=== PATIENT | male | born 1955 | race Caucasian/White ===

== ENCOUNTER 2024-05-08 20:29 | Inpatient (IN) | payer MEDICARE, OTHER ==
[~2024-05-08] VITALS: Ht 182.9 cm; Wt 99.9 kg
[2024-05-08 21:10] LABS: BASOPHILS ABSOLUTE AUTO 0.07 K/mm3 (0.00-0.23); BASOPHILS PERCENT AUTO 0 % (0-2); EOSINOPHILS ABSOLUTE AUTO 0.01 K/mm3 (0.00-0.68); EOSINOPHILS PERCENT AUTO 0 % (0-6); Hematocrit 38.5 % (37.0-53.0); Hemoglobin 14.2 g/dL (13.5-17.5); IMMATURE GRAN ABSOLUTE AUTO 0.18 K/mm3 (0.00-0.10); IMMATURE GRAN PERCENT AUTO 1 % (0-1); LYMPHOCYTES ABSOLUTE AUTO 0.87 K/mm3 (0.84-5.20); LYMPHOCYTES PERCENT AUTO 4 % (21-46); MONOCYTES ABSOLUTE AUTO 2.54 K/mm3 (0.16-1.47); MONOCYTES PERCENT AUTO 11 % (4-13); Mean Corpuscular HGB 31.9 pg (26.0-34.0); Mean Corpuscular HGB Conc 36.9 g/dL (31.5-36.5); Mean Corpuscular Volume 87 fL (80-100); Mean Platelet Volume 9.1 fL (9.1-12.4); NEUTROPHILS ABSOLUTE AUTO 20.38 K/mm3 (1.96-9.15); NEUTROPHILS PERCENT AUTO 85 % (41-73); Platelet Count 294 K/mm3 (150-400); RDW Coefficient Variation 12.3 % (11.7-14.2); RDW Standard Deviation 39.2 fL (35.1-46.3); Red Blood Cell Count 4.45 M/mm3 (4.30-5.90); White Blood Cell Count 24.05 K/mm3 (4.00-11.30)
[2024-05-08 21:28] LABS: Albumin, Blood 3.9 g/dL (3.4-5.0); Albumin/Globulin Ratio 0.8 (0.8-1.8); Bilirubin, Total 1.7 mg/dL (0.1-1.0); Bun/Creatinine Ratio 18.8 (12.0-20.0); Calcium, Blood 9.7 mg/dL (8.5-10.1); Creatinine, Blood 1.17 mg/dL (0.60-1.20); Globulin, Blood 4.6 g/dL (2.2-4.0); Potassium, Blood 3.1 mmol/L (3.5-5.5); Total Protein, Blood 8.5 g/dL (6.4-8.2)
[2024-05-08] MEDS ORDERED: Ondansetron HCl 2 MG / ML 2ML Vial IV ONE (22:00)
[2024-05-08] MEDS ORDERED: HYDROmorphone HCl/Pf 1MG SYR IV ONE (22:00)
[2024-05-09] VITALS (18 sets, daily range): BP systolic 121–171; BP diastolic 78–104
[2024-05-09] MEDS ORDERED: Lactated Ringer's 1,000 ML IV SCH ×4 (00:05→12:35)
[2024-05-09] MEDS ORDERED: Ampicillin Sod/Sulbactam Sod 3 GM in NS 100 ML IV ONE (00:05)
[2024-05-09] MEDS ORDERED: HYDROmorphone HCl/Pf 1MG SYR IV ONE (00:05)
[2024-05-09] MEDS ORDERED: FLU VACC TS2024-25(6MOS UP)/PF 45 MCG/0.5 ML SYRINGE IM SCH (00:20)
[2024-05-09 01:04] LABS: International Normalized Ratio 1.1; Prothrombin Time Results 11.7 Sec (9.7-11.5)
[2024-05-09] MEDS ORDERED: HYDROmorphone HCl/Pf 1MG SYR IV PRN (01:05)
[2024-05-09] MEDS ORDERED: Ondansetron HCl 2 MG / ML 2ML Vial IV PRN (01:05)
[2024-05-09] MEDS ORDERED: HydrALAZINE HCl 20 MG / ML 1ML Vial IV PRN (01:10)
[2024-05-09] MEDS ORDERED: LORazepam 2 MG/ML 1ML Injection IV PRN (01:10)
[2024-05-09] MEDS ORDERED: Meropenem 1,000 MG in NS 100 ML IV SCH (01:21)
[2024-05-09] MEDS ORDERED: Potassium Chl 20MEQ/Water100ML 100 ML IV SCH (02:10)
[2024-05-09 06:53] LABS: Hemoglobin 14.1 g/dL (13.5-17.5); Mean Corpuscular HGB Conc 36.2 g/dL (31.5-36.5); Mean Corpuscular Volume 88 fL (80-100); Mean Platelet Volume 9.3 fL (9.1-12.4); Platelet Count 274 K/mm3 (150-400); RDW Coefficient Variation 12.5 % (11.7-14.2); RDW Standard Deviation 40.6 fL (35.1-46.3); Red Blood Cell Count 4.41 M/mm3 (4.30-5.90); White Blood Cell Count 24.98 K/mm3 (4.00-11.30)
[2024-05-09 07:14] LABS: Albumin, Blood 3.5 g/dL (3.4-5.0); Albumin/Globulin Ratio 0.7 (0.8-1.8); Bilirubin, Total 1.2 mg/dL (0.1-1.0); Bun/Creatinine Ratio 15.7 (12.0-20.0); Calcium, Blood 9.2 mg/dL (8.5-10.1); Creatinine, Blood 1.15 mg/dL (0.60-1.20); Globulin, Blood 4.7 g/dL (2.2-4.0); Magnesium, Blood 1.5 mg/dL (1.6-2.4); Potassium, Blood 3.6 mmol/L (3.5-5.5); Total Protein, Blood 8.2 g/dL (6.4-8.2)
[2024-05-09 07:28] LABS: BASOPHILS PERCENT MAN 0 % (0-2); EOSINOPHILS PERCENT MAN 0 % (0-6); LYMPHOCYTES ABSOLUTE MAN 0.74 K/mm3 (0.84-5.20); LYMPHOCYTES PERCENT MAN 3 % (21-46); MONOCYTES ABSOLUTE MAN 1.49 K/mm3 (0.16-1.47); MONOCYTES PERCENT MAN 6 % (4-13); NEUTROPHILS ABSOLUTE MAN 22.73 K/mm3 (1.96-9.15); SEG NEUTROPHILS PERCENT MAN 91 % (41-73); TOTAL CELLS COUNTED 100
[2024-05-09] MEDS ORDERED: Mag Sulfate 1 GM/D5% 100ML 100 ML IV STA (07:36)
[2024-05-09] MEDS ORDERED: LISI20 PO (09:32)
[2024-05-09] MEDS ORDERED: Amlodipine Besy10 MG PO (09:32)
--- NOTE | 2024-05-09 09:52 | NUR ---
PT VS RETAKEN. HR CONTINUES TO BE ELEVATED AT 124. PT DENIES CP, HEART SOUND ARE REGULAR AND FAST. DR. MCFARLANE NOTIFIED OF THE ABOVE AT 094O. NO NEW ORDERS AT THIS TIME.
[2024-05-09] MEDS ORDERED: propofoL 20 ML IV ONE (11:42)
[2024-05-09] MEDS ORDERED: FentaNYL Citrate 50 MCG/ML 2 ML Injection ONE ×2 (11:42→15:10)
--- NOTE | 2024-05-09 12:17 | NUR ---
PT TO OR AT THIS TIME
--- NOTE | 2024-05-09 13:02 | NUR ---
History, Chart, Medications and Allergies reviewed before start of procedure.PRE OP TEACHING DONE.
[2024-05-09] MEDS ORDERED: Bupivacaine 0.5% HCl 5 MG/ML 30MLVIAL ONE (13:13)
[2024-05-09] MEDS ORDERED: Metoprolol Tartrate 1 MG/ML 5 ML VIAL IV ONE (13:15)
[2024-05-09] MEDS ORDERED: Midazolam HCl 1MG / ML 2ML Vial ONE (13:39)
[2024-05-09] MEDS ORDERED: Rocuronium Bromide 10 MG/ML 5ML Injection IV ONE ×2 (13:45)
[2024-05-09] MEDS ORDERED: Phenylephrine HCl 10mg/ml 1 ml Vial ONE (13:56)
[2024-05-09] MEDS ORDERED: HYDROmorphone HCl/Pf 1MG SYR ONE (14:00)
[2024-05-09] MEDS ORDERED: Dexamethasone Sod Phos 10 MG/ML 1ML VIAL ONE (14:05)
[2024-05-09] MEDS ORDERED: Sugammadex Sodium 200 MG/2ML SDV (100 MG/ML) ONE (14:56)
[2024-05-09] MEDS ORDERED: Ondansetron HCl 2 MG / ML 2ML Vial ONE (14:56)
[2024-05-09] MEDS ORDERED: HYDCHL25 PO (15:12)
--- NOTE | 2024-05-09 17:15 | NUR ---
POST OP: REPORT RECEIVED FROM CONTRACT ADMINISTRATION COORDINATOR. PT TO UNIT AT 1630. A/O, VSS, SURGICAL SITES WNL, CONT. BIOX APPLIED. PT GIVEN CALL LIGHT AND INSTRUCTED TO CALL FOR STAFF IF NEED OOB.
--- NOTE | 2024-05-09 18:43 | NUR ---
SUMMARY: NO ACUTE CHANGE SINCE POST OP. VSS, PT HAS DENIED PAIN, N/V. SURGICAL SITES WNL. HR AND TEMP TRENDING DOWN. AWAITING POST OP VOID, FLUIDS INFUSING. PT USING CALL LIGHT AND MAKES NEEDS KNOWN.
--- NOTE | 2024-05-10 00:58 | NUR ---
CALL FROM TELE AT 0054. THIS NURSE WAS IN PT ROOM WHEN BOAT ASSEMBLER CALLED. PT HAD A 5 SECOND RUN OF SVT, BUT RETURNED TO 100S SINUS TACH. PT DENIES SOB, CP OR PRESSURE. JUST PRIOR TELE CALL, THIS RN STARTLED PT AWAKE IN ROOM. DISCUSSED WITH SPORTS MANAGER, WILL CONTINUE TO MONITOR. TELEMETRY INTACT.
[2024-05-10 04:13] VITALS: BP 140/68
--- NOTE | 2024-05-10 05:08 | NUR ---
SHIFT SUMMARY NOC. PT POD 1 FOR LAP APPY. PT VOIDING URINE AND TOLERATING CLEAR LIQUIDS. PT ON 3L VIA N/C WITH NO DESAT EVENTS. TELEMETRY IN PLACE WITH ONE EVENT, SEE PREVIOUS NOTE. PT SBA, AND AMBULATES WELL. REJI DRAIN PRODUCING SEROSANG OUTPUT, LAP SITES X4 C/D/I. PT MEDICATED FOR PAIN WITH REPORTED RELIEF OF SX. BED IN LOWEST POSITION, CALL LIGHT IN REACH.
--- NOTE | 2024-05-10 05:31 | NUR ---
CALL FROM TELE AT 0517. RECEIVED CALL FROM TELEMETRY THAT PT HAD A 10 BEAT RUN OF SVT WITH HIGHEST PULSE OF 154 BPM. PT'S HEART RATE RETURNED TO 110S. THIS RN IMMEDIATLEY CHECKED ON PT. PT RESTING IN BED, DENIES SOB, CHEST PAIN/PRESSURE. T/C PLACED TO DR. MOTTA, ORDERS TO CONFIRM CHEM PANEL, BMP, AND MAGNESIUM AM LABS ARE ORDERED. VERIFIED LABS ARE ORDERED.
[2024-05-10 05:38] LABS: BASOPHILS ABSOLUTE AUTO 0.07 K/mm3 (0.00-0.23); BASOPHILS PERCENT AUTO 0 % (0-2); EOSINOPHILS ABSOLUTE AUTO 0.01 K/mm3 (0.00-0.68); EOSINOPHILS PERCENT AUTO 0 % (0-6); Hematocrit 36.2 % (37.0-53.0); Hemoglobin 12.6 g/dL (13.5-17.5); IMMATURE GRAN ABSOLUTE AUTO 0.25 K/mm3 (0.00-0.10); IMMATURE GRAN PERCENT AUTO 1 % (0-1); LYMPHOCYTES ABSOLUTE AUTO 0.69 K/mm3 (0.84-5.20); LYMPHOCYTES PERCENT AUTO 3 % (21-46); MONOCYTES ABSOLUTE AUTO 1.75 K/mm3 (0.16-1.47); MONOCYTES PERCENT AUTO 7 % (4-13); Mean Corpuscular HGB 31.3 pg (26.0-34.0); Mean Corpuscular HGB Conc 34.8 g/dL (31.5-36.5); Mean Corpuscular Volume 90 fL (80-100); Mean Platelet Volume 9.1 fL (9.1-12.4); NEUTROPHILS ABSOLUTE AUTO 22.08 K/mm3 (1.96-9.15); NEUTROPHILS PERCENT AUTO 89 % (41-73); Platelet Count 240 K/mm3 (150-400); RDW Coefficient Variation 12.9 % (11.7-14.2); RDW Standard Deviation 43.1 fL (35.1-46.3); Red Blood Cell Count 4.02 M/mm3 (4.30-5.90); White Blood Cell Count 24.85 K/mm3 (4.00-11.30)
[2024-05-10 07:24] LABS: Albumin, Blood 2.9 g/dL (3.4-5.0); Albumin/Globulin Ratio 0.6 (0.8-1.8); Bilirubin, Total 1.2 mg/dL (0.1-1.0); Bun/Creatinine Ratio 22.8 (12.0-20.0); Creatinine, Blood 1.23 mg/dL (0.60-1.20); Globulin, Blood 4.8 g/dL (2.2-4.0); Magnesium, Blood 1.8 mg/dL (1.6-2.4); Potassium, Blood 3.5 mmol/L (3.5-5.5); Total Protein, Blood 7.7 g/dL (6.4-8.2)
[2024-05-10 07:52] VITALS: BP 113/70
[2024-05-10] MEDS ORDERED: OxyCODONE HCL 5 MG TAB PO PRN (09:00)
[2024-05-10 14:57] VITALS: BP 113/67
[2024-05-10] MEDS ORDERED: Lactated Ringer's 500 ML IV SCH (16:35)
[2024-05-10] MEDS ORDERED: NS 250 ML IV PRN (17:00)
[2024-05-10 19:41] VITALS: BP 155/73
--- NOTE | 2024-05-10 20:15 | NUR ---
CALL FROM TELE. THIS RN RECEIVED NOTIFICATIONS OF SVT RUNS X3 DURING SHIFT REPORT. RUNS LASTED AROUND 11 BEATS OR LESS AND HEART RATE WENT HIGH 150S. VISUALIZED PT AND DENIES SOB, CHEST PAIN OR PRESSURE. VERBALIZED BEING ASYMPTOMATIC. T/C PLACED TO DR. PARRY REGARDING SVT EVENTS. NEW STAT ORDERS RECEIVED FOR CHEM PANEL AND MAGNESIUM LEVELS AND TO CALL WITH RESULTS WHEN IN.
--- NOTE | 2024-05-10 21:11 | NUR ---
SHIFT SUMMARY THIS RN RECIEVED REPORT FROM LM SIU AND ASSUMED CARE OF PT AT 1430. PT IS POD1 FOR LAP APPY W/ WASHOUT. REJI DRAIN PUTTING OUT SMALL AMOUNT OF HARRIS FLUID. PT IS HAVING LOOSE BM'S, PT HAS HAD ONE LOOSE BROWN BM SINCE THIS RN ASSUMED CARE OF PT. PAIN TOLERABLE, PT DID NOT REQUIRE PAIN MEDS. AMBULATING INDEPENDENTLY THROUGHOUT SHIFT. DRESSINGS C/D/I. REJI DRESSING CHANGED AFTER PT SHOWERED, CHG DRESSING APPLIED. RECIEVED REPORT THAT THIS PT HAD MULTIPLE RUNS OF SVT IN AM. PT HAD TWO MORE RUNS OF SVT AT END OF SHIFT, PT DENIES CHEST PAIN/PRESSURE. PT TACHY 100-110 BUT VSS OTHERWISE. INFORMED ONCOMING NURSE VLADIMIR OF PT'S STATUS. PT CURRENTLY RESTING COMFORTABLY IN ROOM, CALL LIGHT IN REACH.
[2024-05-10 21:27] LABS: Albumin, Blood 2.8 g/dL (3.4-5.0); Albumin/Globulin Ratio 0.6 (0.8-1.8); Bilirubin, Total 0.9 mg/dL (0.1-1.0); Bun/Creatinine Ratio 27.1 (12.0-20.0); Calcium, Blood 9.1 mg/dL (8.5-10.1); Creatinine, Blood 1.18 mg/dL (0.60-1.20); Globulin, Blood 4.6 g/dL (2.2-4.0); Magnesium, Blood 1.9 mg/dL (1.6-2.4); Potassium, Blood 3.3 mmol/L (3.5-5.5); Total Protein, Blood 7.4 g/dL (6.4-8.2)
[2024-05-10] MEDS ORDERED: Mag Sulfate 1 GM/D5% 100ML 100 ML IV ONE (22:00)
[2024-05-10] MEDS ORDERED: Potassium Chloride 40 MEQ IV ONE (22:00)
--- NOTE | 2024-05-10 22:00 | NUR ---
STAT LAB RESULTS IN, NEW ORDERS RECEIVED. PATENT COUNSEL DYLAN OSCAR REPORTED STAT RESULTS TO DR. PARRY. NEW ORDERS RECEIVED FOR POTASSIUM AND MAGNESIUM.
[2024-05-10] MEDS ORDERED: Potassium Chl 20MEQ/Water100ML 100 ML IV STA (22:04)
[2024-05-10] MEDS ORDERED: Acetaminophen 325 MG TABLET PO PRN (23:05)
[2024-05-10 23:56] VITALS: BP 147/84
[2024-05-11] MEDS ORDERED: Piperacillin/Tazobactam Sod 3.375 GM in NS 100 ML IV SCH
[2024-05-11 04:06] VITALS: BP 155/99
[2024-05-11 05:14] LABS: BASOPHILS ABSOLUTE AUTO 0.03 K/mm3 (0.00-0.23); BASOPHILS PERCENT AUTO 0 % (0-2); EOSINOPHILS ABSOLUTE AUTO 0.02 K/mm3 (0.00-0.68); EOSINOPHILS PERCENT AUTO 0 % (0-6); Hematocrit 36.6 % (37.0-53.0); Hemoglobin 12.7 g/dL (13.5-17.5); IMMATURE GRAN ABSOLUTE AUTO 0.15 K/mm3 (0.00-0.10); IMMATURE GRAN PERCENT AUTO 1 % (0-1); LYMPHOCYTES ABSOLUTE AUTO 1.11 K/mm3 (0.84-5.20); LYMPHOCYTES PERCENT AUTO 6 % (21-46); MONOCYTES ABSOLUTE AUTO 1.44 K/mm3 (0.16-1.47); MONOCYTES PERCENT AUTO 8 % (4-13); Mean Corpuscular HGB 31.4 pg (26.0-34.0); Mean Corpuscular HGB Conc 34.7 g/dL (31.5-36.5); Mean Corpuscular Volume 91 fL (80-100); Mean Platelet Volume 9.7 fL (9.1-12.4); NEUTROPHILS ABSOLUTE AUTO 16.08 K/mm3 (1.96-9.15); NEUTROPHILS PERCENT AUTO 85 % (41-73); Platelet Count 283 K/mm3 (150-400); RDW Coefficient Variation 12.9 % (11.7-14.2); Red Blood Cell Count 4.04 M/mm3 (4.30-5.90); White Blood Cell Count 18.83 K/mm3 (4.00-11.30)
--- NOTE | 2024-05-11 05:39 | NUR ---
SHIFT SUMMARY NOC. PT POD 2 FOR RUPTURED LAP APPY. PT LAP SITES X4 C/D/I AND REJI DRAIN PRODUCING SEROSANG DRAINAGE. PT MEDICATED FOR PAIN WITH REPORTED RELIEF OF SX. PT A/O X4 AND INDEPENDENT IN ROOM, SBA FOR CORDS. TELEMETRY INTACT, SEE PREVIOUS NOTE ON EVENTS. PT VOIDING URINE AND HAVING MULTIPLE LOOSE BROWN STOOLS THIS SHIFT. PT TOLERATING CLEAR LIQUIDS AT THIS TIME WITHOUT NAUSEA. BED IN LOWEST POSITION, CALL LIGHT IN REACH.
[2024-05-11 05:49] LABS: Albumin, Blood 2.9 g/dL (3.4-5.0); Albumin/Globulin Ratio 0.6 (0.8-1.8); Bilirubin, Total 0.7 mg/dL (0.1-1.0); Calcium, Blood 9.3 mg/dL (8.5-10.1); Creatinine, Blood 1.07 mg/dL (0.60-1.20); Globulin, Blood 4.5 g/dL (2.2-4.0); Potassium, Blood 3.7 mmol/L (3.5-5.5); Total Protein, Blood 7.4 g/dL (6.4-8.2)
[2024-05-11 07:17] VITALS: BP 139/88
[2024-05-11] MEDS ORDERED: HydrALAZINE HCl 20 MG / ML 1ML Vial IV PRN (08:10)
[2024-05-11] MEDS ORDERED: AmLODIPine Besylate 5 MG Tab PO SCH (09:00)
[2024-05-11] MEDS ORDERED: Lactobacil 2-S.Thermo-Bifido 1 1 Cap PO SCH (09:00)
[2024-05-11 15:27] VITALS: BP 134/89
--- NOTE | 2024-05-11 18:21 | NUR ---
SUMMARY: PT IS POD2 LAP APPY WITH WASH OUT. VSS, TELE STABLE-NO REPORT OF RUNS OF SVT'S. PT AMBULATORY IN ROOM. LAP SITES WNL, REJI DRAIN COMPRESSED WITH SS/HARRIS OUTPUT.. ANTIBIOTICS INFUSED. NO CONCERNS, PT USES CALL LIGHT AND MAKES NEEDS KNOWN.
[2024-05-11 19:10] VITALS: BP 146/68
[2024-05-12] MEDS ORDERED: Piperacillin/Tazobactam Sod 3.375 GM in NS 100 ML IV SCH
[2024-05-12 04:48] VITALS: BP 144/83
--- NOTE | 2024-05-12 05:37 | NUR ---
SHIFT SUMMARY ROGERS WAS ALERT AND FULLY ORIENTED ON ASSESMENT. LAP SITES C/D/I, REJI DRAIN COMPRESSED AND PRODUCING MILKY SS. AMBULATING INDEPENDENTLY TO BR, PT TOLERATING FULL LIQUID DIET W/O ISSUE. PT STATES THAT HE IS FINALLY FEELING GOOD TONIGHT. ONE ASYMPTOMATIC EVENT ON TELE THAT WAS DESCRIBED LOOKING SIMILAR TO 12 BEATS OF VTACH, BUT NOT VTACH..
[2024-05-12 07:22] VITALS: BP 139/90
[2024-05-12] MEDS ORDERED: Amoxicillin/Clavulanate K 875 MG Tab PO SCH (09:00)
[2024-05-12 10:22] LABS: Hemoglobin 12.3 g/dL (13.5-17.5); Mean Corpuscular HGB 31.1 pg (26.0-34.0); Mean Corpuscular HGB Conc 34.2 g/dL (31.5-36.5); Mean Corpuscular Volume 91 fL (80-100); Mean Platelet Volume 9.5 fL (9.1-12.4); Platelet Count 306 K/mm3 (150-400); RDW Coefficient Variation 12.7 % (11.7-14.2); RDW Standard Deviation 42.3 fL (35.1-46.3); Red Blood Cell Count 3.96 M/mm3 (4.30-5.90); White Blood Cell Count 12.79 K/mm3 (4.00-11.30)
[2024-05-12] MEDS ORDERED: ACET325 PO (14:01)
[2024-05-12] MEDS ORDERED: OXYC5 PO (14:04)
[2024-05-12] MEDS ORDERED: VISBIOME 112.51 EACH PO (14:04)
[2024-05-12] MEDS ORDERED: AMOCLA875 PO (14:04)
--- NOTE | 2024-05-12 14:49 | NUR ---
DISCHARGE WRITTEN AND VERBAL DISCHARGE INSTRUCTIONS PROVIDED BY ROULA AMATO. PER ROULA PT DISCHARGED AT APPROXIMATELY 1430.
== END 2024-05-12 14:36 | disposition home or self-care (01) | DRG 853 ==
LOC: ER 20:29 → ERHOLD 05-09 00:19 → SURS 05-09 00:19
PROVIDERS: Family Medicine; Hospitalist; Internal Medicine; Physician Assistant; Student in an Organized Health Care Education/Training Program; Surgery; ADMIT Student in an Organized Health Care Education/Training Program
PROC: 0W9G4ZZ Drainage of Peritoneal Cavity, Percutaneous Endoscopic Approach (ICD-10-PCS; 2024-05-09)
PROC: 0DXU4ZW Transfer Omentum to Abdominal Region, Percutaneous Endoscopic Approach (ICD-10-PCS; 2024-05-09)
PROC: 8E0W4CZ Robotic Assisted Procedure of Trunk Region, Percutaneous Endoscopic Approach (ICD-10-PCS; 2024-05-09)
PROC: 0DTJ4ZZ Resection of Appendix, Percutaneous Endoscopic Approach (ICD-10-PCS; principal; 2024-05-09 12:30)
DX: A41.9 Sepsis, unspecified organism (principal); K35.32 Acute appendicitis with perforation, localized peritonitis, and gangrene, without abscess; E87.1 Hypo-osmolality and hyponatremia; N17.9 Acute kidney failure, unspecified; I10 Essential (primary) hypertension; E87.6 Hypokalemia; E83.42 Hypomagnesemia; Z88.8 Allergy status to other drugs, medicaments and biological substances; Z79.899 Other long term (current) drug therapy
CPT/HCPCS: 36415; 74177; 80053; 83605; 83690; 83735; 85025; 85027; 85610; 85730; 87040; 88304; 93005; 93010; 94762; 96374; 96374-59; 96375; 99285-25; A9270; J0295; J0360; J1100; J1171; J2185; J2250; J2371; J2405; J2543; J2704; J3010; J3475; J3480; J7050; J7120; Q9967

== ENCOUNTER 2024-08-14 13:16 | Day surgery (SDC) | payer MEDICARE ==
[~2024-08-14] VITALS: Ht 182.9 cm; Wt 99.1 kg
[~2024-08-14 13:16] MED LIST: ACET325 PO; AMOCLA875 PO; Amlodipine Besy10 MG PO; HYDCHL25 PO; LISI20 PO; OXYC5 PO; VISBIOME 112.51 EACH PO
[2024-08-14] MEDS ORDERED: Lactated Ringer's 1,000 ML IV ONE ×2 (15:10→15:17)
[2024-08-14] MEDS ORDERED: propofoL 50 ML IV ONE (15:17)
== END 2024-08-14 16:27 | disposition home or self-care (01) ==
LOC: ORSCSDS 13:16
PROVIDERS: Surgery
PROC: 0DBH8ZX Excision of Cecum, Via Natural or Artificial Opening Endoscopic, Diagnostic (ICD-10-PCS; principal; 2024-08-14 14:45)
PROC: 0DBK8ZX Excision of Ascending Colon, Via Natural or Artificial Opening Endoscopic, Diagnostic (ICD-10-PCS; principal; 2024-08-14 14:45)
PROC: 0DBN8ZX Excision of Sigmoid Colon, Via Natural or Artificial Opening Endoscopic, Diagnostic (ICD-10-PCS; principal; 2024-08-14 14:45)
PROC: 0DBP8ZX Excision of Rectum, Via Natural or Artificial Opening Endoscopic, Diagnostic (ICD-10-PCS; principal; 2024-08-14 14:45)
DX: Z12.11 Encounter for screening for malignant neoplasm of colon (principal); Z90.49 Acquired absence of other specified parts of digestive tract; D12.0 Benign neoplasm of cecum; D12.2 Benign neoplasm of ascending colon; D12.8 Benign neoplasm of rectum; K57.30 Diverticulosis of large intestine without perforation or abscess without bleeding; I10 Essential (primary) hypertension; E87.6 Hypokalemia
CPT/HCPCS: J2704; J7120